=== PATIENT | male | born 1995 | race Caucasian/White ===

== ENCOUNTER 2021-09-12 13:06 | Emergency (ER) | payer BC ==
[2021-09-12] MEDS ORDERED: FAMOTIDINE 20 MG/2 ML VIAL IV STA (13:10)
[2021-09-12] MEDS ORDERED: methylPREDNISolone SOD SUCCI 125 MG/2 ML VIAL IV STA (13:10)
[2021-09-12 13:13] VITALS: RESP 18; TEMP 97.6
--- NOTE | 2021-09-12 13:14 | ED ---
General Adult HPI - General Stated complaint: Bee Sting Time Seen by Provider: 09/12/21 13:06 Source: patient, RN notes reviewed, old records reviewed - History of Present Illness Initial comments: This is a 26-year-old male presents emergency Department stating he was stung by a bee. Patient states since yesterday. He started feeling very lightheaded and he became red all over and he became short of breath. Patient states the first time he had this reaction was just a couple weeks ago and he never had a prior to that. EMS stated when they arrived the patient was read from the head down states his face was without color. Patient states prior to getting stung he was feeling findings having no symptoms whatsoever. Patient denies any chest pain. Patient denies palpitations. Patient denies any abdominal pain patient denies nausea vomiting. Patient states on the way in he was nauseous and they did give him Zofran. Patient also received Benadryl when he had taken 2 Benadryl prior to the ankles getting well. - Related Data Previous Rx's Medication Instructions Recorded EPINEPHrine (Auto Inject) [Epipen] 0.3 mg IM ONCE PRN #2 each 09/12/21 predniSONE [Deltasone] 40 mg PO DAILY #8 tab 09/12/21 Allergies Allergy/AdvReac Type Severity Reaction Status Date / Time bee venom protein (honey bee) Allergy Rash/Hives Verified 09/12/21 13:14 Review of Systems ROS Statement: Those systems with pertinent positive or pertinent negative responses have been documented in the HPI. ROS Other: All systems not noted in ROS Statement are negative. General Exam - General Exam Comments Initial Comments: GENERAL: Patient is well-developed and well-nourished. Patient is nontoxic and well- hydrated and is in mild distress. ENT: Neck is soft and supple. No significant lymphadenopathy is noted. Oropharynx is clear. Moist mucous membranes. Neck has full range of motion without eliciting any pain. EYES: The sclera were anicteric and conjunctiva were pink and moist. Extraocular movements were intact and pupils were equal round and reactive to light. Eyelids were unremarkable. PULMONARY: Unlabored respirations. Good breath sounds bilaterally. No audible rales rhonchi or wheezing was noted. CARDIOVASCULAR: There is a regular rate and rhythm without any murmurs gallops or rubs. ABDOMEN: Legs arms chest and abdomen are all erythematous. SKIN: Skin is clear with no lesions or rashes and otherwise unremarkable. NEUROLOGIC: Patient is alert and oriented x3. Cranial nerves II through XII are grossly intact. Motor and sensory are also intact. Normal speech, volume and content. Symmetrical smile. MUSCULOSKELETAL: Normal extremities with adequate strength and full range of motion. LYMPHATICS: No significant lymphadenopathy is noted PSYCHIATRIC: Normal psychiatric evaluation. Course Vital Signs 09/12/21 09/12/21 09/12/21 13:07 13:32 13:39 Temperature 97.6 F Pulse Rate 67 64 Respiratory 18 18 18 Rate Blood Pressure 112/77 118/64 O2 Sat by Pulse 95 100 Oximetry Medical Decision Making - Medical Decision Making Patient taken his own Benadryl and EMS gave the patient some more Benadryl patient states she was feeling considerably better at this time Patient received Solu-Medrol and Pepcid in the emergency department was doing considerably better. Patient was discharged home with a prescription for prednisone and EpiPen's Disposition Clinical Impression: Anaphylaxis Disposition: HOME SELF-CARE Condition: Good Instructions (If sedation given, give patient instructions): Anaphylaxis (ED) Prescriptions: predniSONE [Deltasone] 40 mg PO DAILY #8 tab EPINEPHrine (Auto Inject) [Epipen] 0.3 mg IM ONCE PRN #2 each PRN Reason: Anaphylaxis Is patient prescribed a controlled substance at d/c from ED?: No Referrals: None,Stated [Primary Care Provider] - 1-2 days Time of Disposition: 13:46
[2021-09-12 15:43] VITALS: BP 109/72; PULSE 72
== END 2021-09-12 15:28 | disposition home or self-care (01) ==
LOC: EC 13:06
DX: T63.441A Toxic effect of venom of bees, accidental (unintentional), initial encounter (principal); Z91.030 Bee allergy status
CPT/HCPCS: 99284; 96374; 96375; J2930